=== PATIENT | male | born 1965 | race Caucasian/White ===

== ENCOUNTER 2016-05-26 22:23 | Inpatient (IN) | payer MEDICARE, MEDICAID ==
[~2016-05-26] VITALS: Ht 175.3 cm; Wt 91.8 kg
[~2016-05-26 22:23] MED LIST: CYCL10 PO; OMEP20 PO
[2016-05-26] MEDS ORDERED: ZOLPIDEM TARTRATE 10 MG TABLET PO PRN (23:45)
[2016-05-26] MEDS ORDERED: HALOPERIDOL 5 MG TABLET PO PRN (23:45)
[2016-05-27] MEDS ORDERED: PNEUMOCOCCAL VACCINE POLYVALENT 0.5 ML VIAL [PPSV23] IM ONE (00:15)
[2016-05-27] MEDS ORDERED: INFLUENZA VIRUS VACCINE QVS 2016-17 (3YR+)/PF 60 MCG/0.5 ML SYRINGE IM ONE (00:15)
[2016-05-27 01:08] VITALS: BP 115/86
[2016-05-27] MEDS: LORazepam 2 MG TABLET PO PRN ×3 (06:17→16:30)
[2016-05-27 07:49] LABS: BASOPHILS % (AUTO) 0.3 % (0.0-2.0); EOSINOPHILS % (AUTO) 0.6 % (1.0-6.0); HEMATOCRIT 49.4 % (41-53); HEMOGLOBIN 16.3 g/dL (13.5-17.5); LYMPHOCYTES % (AUTO) 9.8 % (22.0-44.0); MEAN CORPUSCULAR HGB CONC 33.1 G/dL (31.0-37.0); MEAN CORPUSCULAR VOLUME 88 fL (80-100); MONOCYTES # (AUTO) 1.4 K/uL (0.1-1.0); MONOCYTES % (AUTO) 7.1 % (2.0-9.0); NEUTROPHILS # (AUTO) 16.9 K/uL (1.8-7.7); NEUTROPHILS % (AUTO) 82.2 % (40.0-70.0); PLATELET COUNT (AUTO) 277 K/uL (150-450); RED BLOOD CELL COUNT(AUTO) 5.63 MIL/uL (4.50-5.90); RED CELL DISTRIBUTION WIDTH 13.3 % (11.5-14.5); WHITE BLOOD COUNT (AUTO) 20.5 K/uL (4.5-11.0)
[2016-05-27 08:04] VITALS: BP 123/68
[2016-05-27 08:07] LABS: HEMOGLOBIN A1C 5.3 % (4.5-6.2)
[2016-05-27 08:25] LABS: ALANINE AMINOTRANSFERASE 26 U/L (12-78); ANION GAP 12 mmol/L (8-16); ASPARTATE AMINOTRANSFERASE 13 U/L (15-37); BILIRUBIN,TOTAL 0.7 mg/dL (0.1-1.0); CALCIUM, TOTAL 9.3 mg/dL (8.8-10.5); CARBON DIOXIDE 26 mmol/L (22-29); CHLORIDE 97 mmol/L (98-107); CHOL/HDL RATIO 2.4 (4.2-7.3); CREATININE 0.88 mg/dL (0.60-1.30); GLOMERULAR FILTR. RATE CALC > 60 mL/min (>60); POTASSIUM 3.5 mmol/L (3.5-5.1); SODIUM SERUM 135 mmol/L (136-145); THYROID STIMULATING HORMONE 0.48 uIU/mL (0.36-3.74); TOTAL PROTEIN, SERUM 7.4 g/dL (6.4-8.2); UREA NITROGEN, BLOOD 13 mg/dL (7-18)
[2016-05-27] MEDS ORDERED: BENZOCAINE/MENTHOL LOZENGE MM PRN (10:45)
[2016-05-27] MEDS ORDERED: MAG HYDROX/AL HYDROX/SIMETH ES 30 ML SUSPENSION UDCUP PO PRN (10:45)
[2016-05-27] MEDS ORDERED: BACITRACIN 28.4 GM OINTMENT TP PRN (10:45)
[2016-05-27] MEDS ORDERED: ALBUTEROL SULFATE HFA 90 MCG/PUFF 8 GM INHALER IH PRN (10:45)
[2016-05-27] MEDS ORDERED: PETROLATUM,WHITE 71 GM JELLY TP PRN (10:45)
[2016-05-27] MEDS ORDERED: LOPERAMIDE HCL 2 MG CAPSULE PO PRN (10:45)
[2016-05-27] MEDS ORDERED: TraMADol HCL 50 MG TABLET PO PRN (10:45)
[2016-05-27] MEDS ORDERED: ACETAMINOPHEN 325 MG TABLET PO PRN (10:45)
[2016-05-27] MEDS ORDERED: CloNIDine HCL 0.1 MG TABLET PO PRN (10:45)
[2016-05-27] MEDS ORDERED: MAGNESIUM HYDROXIDE SUSPENSION 30 ML UDCUP PO PRN (10:45)
[2016-05-27] MEDS ORDERED: ONDANSETRON HCL 4 MG TABLET PO PRN (10:45)
[2016-05-27] MEDS ORDERED: IBUPROFEN 600 MG TABLET PO PRN (10:45)
[2016-05-27 16:06] VITALS: BP 125/67
[2016-05-27] MEDS: RisperiDONE 2 MG TABLET PO SCH (17:00)
[2016-05-27] MEDS: DIVALPROEX SODIUM 500 MG DR TABLET PO SCH (17:00)
[2016-05-27] MEDS: OMEPRAZOLE 20 MG CAPSULE PO SCH (18:30)
[2016-05-28] MEDS: LORazepam 2 MG TABLET PO PRN ×2 (01:20→08:23)
[2016-05-28 01:41] VITALS: BP 106/77
[2016-05-28 08:23] VITALS: BP 111/71
[2016-05-28] MEDS: OMEPRAZOLE 20 MG CAPSULE PO SCH (08:23)
[2016-05-28 08:28] VITALS: BP 111/71
[2016-05-28] MEDS: DIVALPROEX SODIUM 500 MG DR TABLET PO SCH (09:00)
[2016-05-28] MEDS ORDERED: CYCLOBENZAPRINE HCL 10 MG TABLET PO SCH (09:00)
[2016-05-28] MEDS: RisperiDONE 2 MG TABLET PO SCH (09:00)
[2016-05-28] MEDS ORDERED: RISP2 PO (13:29)
[2016-05-28] MEDS ORDERED: DIVA500T35 PO (13:29)
== END 2016-05-28 15:00 | disposition home or self-care (01) | DRG 885 ==
LOC: EDSTATUS 22:43 → B3A 23:48
PROVIDERS: ADMIT Psychiatry & Neurology Psychiatry; ATTEND Psychiatry & Neurology Psychiatry
DX: F25.9 Schizoaffective disorder, unspecified (principal); R45.851 Suicidal ideations; J44.9 Chronic obstructive pulmonary disease, unspecified; I10 Essential (primary) hypertension; K21.9 Gastro-esophageal reflux disease without esophagitis; K59.00 Constipation, unspecified; G47.00 Insomnia, unspecified; G89.29 Other chronic pain; M79.672 Pain in left foot; F17.200 Nicotine dependence, unspecified, uncomplicated; Z28.21 Immunization not carried out because of patient refusal; Z98.890 Other specified postprocedural states; Z88.8 Allergy status to other drugs, medicaments and biological substances; Z59.0 Homelessness; Z71.6 Tobacco abuse counseling
CPT/HCPCS: 83036; 84439; 84443

== ENCOUNTER 2019-09-18 19:13 | Inpatient (IN) | payer MEDICARE, MEDICAID ==
[~2019-09-18] VITALS: Ht 175.3 cm; Wt 93.2 kg
[~2019-09-18 19:13] MED LIST changes: +DIVA-78 PO; +RISP2TAB23 PO
[2019-09-18] MEDS ORDERED: MAGNESIUM HYDROXIDE SUSPENSION 30 ML UDCUP PO ONE (20:45)
[2019-09-18] MEDS ORDERED: SODIUM PHOS/SODIUM BIPHOS 133 ML ENEMA PR ONE (20:45)
[2019-09-18 20:56] LABS: BASOPHILS % (AUTO) 0.3 % (0.0-2.0); EOSINOPHILS % (AUTO) 0.3 % (1.0-6.0); HEMATOCRIT 46.5 % (41-53); HEMOGLOBIN 15.6 g/dL (13.5-17.5); LYMPHOCYTES # (AUTO) 2.6 K/uL (1.0-4.8); LYMPHOCYTES % (AUTO) 17.6 % (22.0-44.0); MEAN CORPUSCULAR HEMOGLOBIN 29.5 pg (26.0-34.0); MEAN CORPUSCULAR HGB CONC 33.6 G/dL (31.0-37.0); MEAN CORPUSCULAR VOLUME 88 fL (80-100); MONOCYTES # (AUTO) 1.1 K/uL (0.1-1.0); MONOCYTES % (AUTO) 7.3 % (2.0-9.0); NEUTROPHILS # (AUTO) 10.9 K/uL (1.8-7.7); NEUTROPHILS % (AUTO) 74.5 % (40.0-70.0); PLATELET COUNT (AUTO) 315 K/uL (150-450); RED BLOOD CELL COUNT(AUTO) 5.28 MIL/uL (4.50-5.90); RED CELL DISTRIBUTION WIDTH 14.8 % (11.5-14.5)
[2019-09-18 21:06] LABS: ANION GAP 6 mmol/L (8-16); CALCIUM, TOTAL 9.2 mg/dL (8.8-10.5); CARBON DIOXIDE 26 mmol/L (22-29); CHLORIDE 98 mmol/L (98-107); CREATININE 0.72 mg/dL (0.60-1.30); GLOMERULAR FILTR. RATE CALC > 60 mL/min (>60); GLUCOSE,RANDOM 105 mg/dL (70-110); POTASSIUM 3.9 mmol/L (3.5-5.1); SODIUM SERUM 130 mmol/L (136-145); UREA NITROGEN, BLOOD 13 mg/dL (7-18)
[2019-09-18 21:12] LABS: ALANINE AMINOTRANSFERASE 30 U/L (12-78); ALBUMIN 3.9 g/dL (3.4-5.0); ALKALINE PHOSPHATASE 90 U/L (46-116); ASPARTATE AMINOTRANSFERASE 13 U/L (15-37); BILIRUBIN,TOTAL 0.6 mg/dL (0.1-1.0); TOTAL PROTEIN, SERUM 7.4 g/dL (6.4-8.2)
[2019-09-18] MEDS ORDERED: SODIUM CHLORIDE 0.9% 100 ML ONE (23:37)
[2019-09-18] MEDS ORDERED: IOVERSOL 350 MG/ML 100 ML VIAL ONE (23:37)
[2019-09-19 00:25] LABS: VALPROIC ACID < 3 mcg/mL (50-100)
[2019-09-19] MEDS ORDERED: ZOLPIDEM TARTRATE 10 MG TABLET PO PRN (01:00)
[2019-09-19] MEDS ORDERED: OLANZapine 5 MG RAPDIS TABLET PO PRN (01:00)
[2019-09-19] MEDS: LORazepam 2 MG TABLET PO PRN ×4 (02:50→20:07)
[2019-09-19 03:45] VITALS: BP 123/92
[2019-09-19 03:55] VITALS: BP 123/92
[2019-09-19] MEDS ORDERED: PNEUMOCOCCAL VACCINE POLYVALENT 0.5 ML VIAL [PPSV23] IM ONE (04:15)
[2019-09-19 08:25] LABS: APPEARANCE,URINE CLEAR (CLEAR); GLUCOSE, URINE (UA) NEGATIVE (NEGATIVE); KETONES,URINE 15 mg/dL (NEGATIVE); LEUKOCYTE ESTERASE ,URINE NEGATIVE (NEGATIVE); NITRATE,URINE NEGATIVE (NEGATIVE); OCCULT BLOOD,URINE NEGATIVE (NEGATIVE); PROTEIN,URINE NEGATIVE (NEGATIVE)
[2019-09-19 08:30] LABS: AMPHET/METH SCREEN,URINE NEGATIVE (NEGATIVE); BARBITURATE SCREEN, URINE NEGATIVE (NEGATIVE); BENZODIAZEPINES SCREEN,URINE NEGATIVE (NEGATIVE); CANNABINOID SCREEN,URINE NEGATIVE (NEGATIVE); COCAINE SCREEN,URINE NEGATIVE (NEGATIVE); METHADONE SCREEN, URINE NEGATIVE (NEGATIVE); OPIATE SCREEN,URINE NEGATIVE (NEGATIVE)
[2019-09-19 08:32] LABS: PHENCYCLIDINE SCREEN,URINE NEGATIVE (NEGATIVE)
[2019-09-19 08:52] LABS: BILIRUBIN,URINE PRELIM. POSITIVE (NEGATIVE)
[2019-09-19 09:19] VITALS: BP 129/75
[2019-09-19] MEDS ORDERED: TUBERCULIN, PURIFIED PROTEIN DERIVATIVE 5 TU/0.1 ML SYRINGE ID ONE (17:30)
[2019-09-19] MEDS ORDERED: HydrOXYzine PAMOATE 50 MG CAPSULE PO PRN (17:30)
[2019-09-19] MEDS ORDERED: PROMETHAZINE HCL 25 MG TABLET PO PRN (17:30)
[2019-09-19] MEDS ORDERED: MAG HYDROX/AL HYDROX/SIMETH ES 30 ML SUSPENSION UDCUP PO PRN (17:30)
[2019-09-19] MEDS ORDERED: GuaiFENesin/D-METHORPHAN [SUGAR-FREE] 200-20MG/10 ML SYRUP UDCUP PO PRN (17:30)
[2019-09-19] MEDS ORDERED: MAGNESIUM HYDROXIDE SUSPENSION 30 ML UDCUP PO PRN (17:30)
[2019-09-19 19:28] VITALS: BP 120/75
[2019-09-20 04:22] VITALS: BP 120/88
[2019-09-20] MEDS: LORazepam 2 MG TABLET PO PRN ×4 (04:22→21:00)
[2019-09-20] MEDS: MULTIVITAMINS WITH MINERALS, THERAPEUTIC TABLET PO SCH (08:07)
[2019-09-20] MEDS: NALTREXONE HCL 50 MG TABLET PO SCH (08:07)
[2019-09-20] MEDS: FLUoxetine HCL 20 MG CAPSULE PO SCH (08:07)
[2019-09-20] MEDS: THIAMINE 100 MG TABLET PO SCH ×2 (08:07→16:53)
[2019-09-20] MEDS: FOLIC ACID 1 MG TABLET PO SCH (08:07)
[2019-09-20] MEDS ORDERED: OLANZapine 5 MG RAPDIS TABLET PO SCH (09:00)
[2019-09-20 09:04] VITALS: BP 109/84
[2019-09-20 16:06] VITALS: BP 135/76
[2019-09-20] MEDS: OMEPRAZOLE 20 MG CAPSULE PO SCH (16:52)
[2019-09-20] MEDS: PRAZOSIN HCL 1 MG CAPSULE PO SCH (20:51)
[2019-09-21 00:41] VITALS: BP 138/92
[2019-09-21] MEDS: LORazepam 2 MG TABLET PO PRN ×3 (08:12→21:13)
[2019-09-21 08:50] VITALS: BP 117/75
[2019-09-21] MEDS: NALTREXONE HCL 50 MG TABLET PO SCH (09:00)
[2019-09-21] MEDS: FOLIC ACID 1 MG TABLET PO SCH (10:39)
[2019-09-21] MEDS: THIAMINE 100 MG TABLET PO SCH ×2 (10:39→16:24)
[2019-09-21] MEDS: OMEPRAZOLE 20 MG CAPSULE PO SCH ×2 (10:40→16:25)
[2019-09-21] MEDS: FLUoxetine HCL 20 MG CAPSULE PO SCH (10:40)
[2019-09-21] MEDS: MULTIVITAMINS WITH MINERALS, THERAPEUTIC TABLET PO SCH (10:41)
[2019-09-21 16:00] VITALS: BP 141/92
[2019-09-21] MEDS: OLANZapine 10 MG RAPDIS TABLET PO SCH (20:08)
[2019-09-21] MEDS: PRAZOSIN HCL 1 MG CAPSULE PO SCH (20:08)
[2019-09-21] MEDS: IBUPROFEN 600 MG TABLET PO PRN (21:16)
[2019-09-22 04:05] VITALS: BP 139/86
[2019-09-22] MEDS: LORazepam 2 MG TABLET PO PRN ×3 (04:09→16:20)
[2019-09-22] MEDS: IBUPROFEN 600 MG TABLET PO PRN ×2 (04:09→16:39)
[2019-09-22] MEDS: OMEPRAZOLE 20 MG CAPSULE PO SCH ×2 (08:12→16:19)
[2019-09-22] MEDS: MULTIVITAMINS WITH MINERALS, THERAPEUTIC TABLET PO SCH (08:12)
[2019-09-22] MEDS: FOLIC ACID 1 MG TABLET PO SCH (08:12)
[2019-09-22] MEDS: THIAMINE 100 MG TABLET PO SCH ×2 (08:12→16:19)
[2019-09-22] MEDS: NALTREXONE HCL 50 MG TABLET PO SCH (08:19)
[2019-09-22] MEDS: FLUoxetine HCL 20 MG CAPSULE PO SCH (08:19)
[2019-09-22 08:22] LABS: ANION GAP 7 mmol/L (8-16); CALCIUM, TOTAL 8.8 mg/dL (8.8-10.5); CARBON DIOXIDE 28 mmol/L (22-29); CHLORIDE 106 mmol/L (98-107); CREATININE 0.72 mg/dL (0.60-1.30); GLOMERULAR FILTR. RATE CALC > 60 mL/min (>60); GLUCOSE,RANDOM 108 mg/dL (70-110); POTASSIUM 3.8 mmol/L (3.5-5.1); SODIUM SERUM 141 mmol/L (136-145); UREA NITROGEN, BLOOD 11 mg/dL (7-18)
[2019-09-22 08:30] VITALS: BP 123/88
[2019-09-22 16:42] VITALS: BP 117/71
[2019-09-22] MEDS: OLANZapine 10 MG RAPDIS TABLET PO SCH (20:08)
[2019-09-22] MEDS: PRAZOSIN HCL 1 MG CAPSULE PO SCH (20:08)
[2019-09-22 23:55] VITALS: BP 134/90
[2019-09-23] MEDS: LORazepam 1 MG TABLET PO PRN ×4 (00:02→17:54)
[2019-09-23 00:43] VITALS: BP 139/99
[2019-09-23 06:25] VITALS: BP 142/88
[2019-09-23 07:39] LABS: BASOPHILS % (AUTO) 0.3 % (0.0-2.0); HEMOGLOBIN 13.8 g/dL (13.5-17.5); LYMPHOCYTES # (AUTO) 1.6 K/uL (1.0-4.8); MEAN CORPUSCULAR HEMOGLOBIN 29.6 pg (26.0-34.0); MEAN CORPUSCULAR HGB CONC 32.1 G/dL (31.0-37.0); MEAN CORPUSCULAR VOLUME 92 fL (80-100); MONOCYTES # (AUTO) 0.4 K/uL (0.1-1.0); MONOCYTES % (AUTO) 3.9 % (2.0-9.0); NEUTROPHILS # (AUTO) 7.4 K/uL (1.8-7.7); NEUTROPHILS % (AUTO) 77.8 % (40.0-70.0); PLATELET COUNT (AUTO) 274 K/uL (150-450); RED BLOOD CELL COUNT(AUTO) 4.65 MIL/uL (4.50-5.90); RED CELL DISTRIBUTION WIDTH 16.4 % (11.5-14.5)
[2019-09-23 07:44] LABS: CREATINE KINASE, TOTAL ONLY 75 U/L (39-308)
[2019-09-23] MEDS: MULTIVITAMINS WITH MINERALS, THERAPEUTIC TABLET PO SCH (08:36)
[2019-09-23] MEDS: FOLIC ACID 1 MG TABLET PO SCH (08:36)
[2019-09-23] MEDS: THIAMINE 100 MG TABLET PO SCH ×2 (08:36→16:20)
[2019-09-23] MEDS: OMEPRAZOLE 20 MG CAPSULE PO SCH ×2 (08:36→16:20)
[2019-09-23] MEDS: ARIPiprazole 5 MG TABLET PO SCH (08:36)
[2019-09-23 15:00] VITALS: BP 134/95
[2019-09-23] MEDS: IBUPROFEN 600 MG TABLET PO PRN (15:48)
[2019-09-23 17:00] VITALS: BP 134/95
[2019-09-23] MEDS: DIVALPROEX SODIUM 500 MG ER TABLET PO SCH (20:14)
[2019-09-23] MEDS: ACETAMINOPHEN 325 MG TABLET PO PRN (20:39)
[2019-09-24] MEDS: LORazepam 1 MG TABLET PO PRN ×4 (00:45→18:55)
[2019-09-24 00:55] VITALS: BP 111/79
[2019-09-24] MEDS: LOPERAMIDE HCL 2 MG CAPSULE PO PRN ×2 (01:03→21:58)
[2019-09-24] MEDS: ARIPiprazole 5 MG TABLET PO SCH (09:00)
[2019-09-24] MEDS: MULTIVITAMINS WITH MINERALS, THERAPEUTIC TABLET PO SCH (10:34)
[2019-09-24] MEDS: THIAMINE 100 MG TABLET PO SCH ×2 (10:34→16:50)
[2019-09-24] MEDS: FOLIC ACID 1 MG TABLET PO SCH (10:35)
[2019-09-24] MEDS: OMEPRAZOLE 20 MG CAPSULE PO SCH ×2 (10:35→16:50)
[2019-09-24] MEDS: ACETAMINOPHEN 325 MG TABLET PO PRN (12:29)
[2019-09-24 12:31] VITALS: BP 124/78
[2019-09-24 13:30] VITALS: BP 132/79
[2019-09-24 17:00] VITALS: BP 111/86
[2019-09-24] MEDS ORDERED: DIVA500T52 PO (19:15)
[2019-09-24] MEDS ORDERED: ARIP5TAB8 PO (19:15)
[2019-09-24] MEDS: DIVALPROEX SODIUM 500 MG ER TABLET PO SCH (20:12)
[2019-09-24 20:49] VITALS: BP 111/86
[2019-09-25] VITALS: BP 120/90
[2019-09-25 05:28] VITALS: BP 122/80
[2019-09-25] MEDS: LORazepam 1 MG TABLET PO PRN ×3 (05:28→09:47)
[2019-09-25] MEDS: MULTIVITAMINS WITH MINERALS, THERAPEUTIC TABLET PO SCH (08:16)
[2019-09-25] MEDS: OMEPRAZOLE 20 MG CAPSULE PO SCH (08:16)
[2019-09-25] MEDS: FOLIC ACID 1 MG TABLET PO SCH (08:18)
[2019-09-25] MEDS: THIAMINE 100 MG TABLET PO SCH (08:18)
[2019-09-25] MEDS: ARIPiprazole 5 MG TABLET PO SCH (08:28)
[2019-09-25 08:59] VITALS: BP 119/88
[2019-09-25 09:46] VITALS: BP 119/88
[2019-09-25] MEDS: ACETAMINOPHEN 325 MG TABLET PO PRN (09:46)
== END 2019-09-25 14:30 | disposition home or self-care (01) | DRG 885 ==
LOC: EMS 19:14 → 3EX 09-19 00:46 → UNDOADMIN 09-19 01:30 → 3EX 09-19 01:30 → UNDODISIN 09-25 14:30
PROVIDERS: ADMIT Psychiatry & Neurology Psychiatry; ATTEND Psychiatry & Neurology Psychiatry
DX: F25.0 Schizoaffective disorder, bipolar type (principal); E87.1 Hypo-osmolality and hyponatremia; R45.851 Suicidal ideations; K21.9 Gastro-esophageal reflux disease without esophagitis; D72.829 Elevated white blood cell count, unspecified; M19.90 Unspecified osteoarthritis, unspecified site; I10 Essential (primary) hypertension; F41.9 Anxiety disorder, unspecified; J44.9 Chronic obstructive pulmonary disease, unspecified; K59.00 Constipation, unspecified; G89.29 Other chronic pain; Z59.0 Homelessness; Z87.891 Personal history of nicotine dependence; Z20.828 Contact with and (suspected) exposure to other viral communicable diseases; Z91.14 Patient's other noncompliance with medication regimen
CPT/HCPCS: 74177; 83735; G0378; G0480; J7050

== ENCOUNTER 2019-11-05 18:29 | Emergency (ER) | payer MEDICARE, OTHER ==
[~2019-11-05] VITALS: Ht 180.3 cm; Wt 97.7 kg
[~2019-11-05 18:29] MED LIST changes: +ARIP5TAB8 PO; -CYCL10 PO; -DIVA-78 PO; +DIVA-80 PO; -RISP2TAB23 PO
[2019-11-05] MEDS ORDERED: IPRAHFA IH (18:36)
[2019-11-05] MEDS ORDERED: ALBU8.5H8 IH (18:36)
[2019-11-05 21:45] VITALS: BP 130/79
[2019-11-05] MEDS ORDERED: HYDROCODONE/ACETAMINOPHEN 10-325 MG TABLET PO ONE (22:15)
[2019-11-05 22:30] LABS: BASOPHILS % (AUTO) 0.6 % (0.0-2.0); EOSINOPHILS % (AUTO) 0.9 % (1.0-6.0); HEMATOCRIT 43.4 % (41-53); HEMOGLOBIN 14.2 g/dL (13.5-17.5); LYMPHOCYTES # (AUTO) 2.2 K/uL (1.0-4.8); LYMPHOCYTES % (AUTO) 17.9 % (22.0-44.0); MEAN CORPUSCULAR HEMOGLOBIN 29.8 pg (26.0-34.0); MEAN CORPUSCULAR HGB CONC 32.8 G/dL (31.0-37.0); MEAN CORPUSCULAR VOLUME 91 fL (80-100); MONOCYTES % (AUTO) 8.6 % (2.0-9.0); NEUTROPHILS # (AUTO) 8.7 K/uL (1.8-7.7); PLATELET COUNT (AUTO) 281 K/uL (150-450); RED BLOOD CELL COUNT(AUTO) 4.78 MIL/uL (4.50-5.90); RED CELL DISTRIBUTION WIDTH 13.7 % (11.5-14.5)
[2019-11-05 23:10] LABS: ANION GAP 10 mmol/L (8-16); CALCIUM, TOTAL 9.3 mg/dL (8.8-10.5); CARBON DIOXIDE 27 mmol/L (22-29); CHLORIDE 107 mmol/L (98-107); CREATININE 1.03 mg/dL (0.60-1.30); GLOMERULAR FILTR. RATE CALC > 60 mL/min (>60); GLUCOSE,RANDOM 97 mg/dL (70-110); POTASSIUM 3.7 mmol/L (3.5-5.1); SODIUM SERUM 144 mmol/L (136-145); UREA NITROGEN, BLOOD 17 mg/dL (7-18)
[2019-11-05 23:16] LABS: ALANINE AMINOTRANSFERASE 21 U/L (12-78); ALBUMIN 3.6 g/dL (3.4-5.0); ALKALINE PHOSPHATASE 82 U/L (46-116); ASPARTATE AMINOTRANSFERASE 15 U/L (15-37); BILIRUBIN,TOTAL 0.4 mg/dL (0.1-1.0); CREATINE KINASE, TOTAL ONLY 70 U/L (39-308); TOTAL PROTEIN, SERUM 7.4 g/dL (6.4-8.2)
== END 2019-11-05 23:23 | disposition left against medical advice (07) ==
LOC: EMS 18:38
DX: G89.29 Other chronic pain (principal); M54.5 Low back pain; F17.210 Nicotine dependence, cigarettes, uncomplicated; J44.9 Chronic obstructive pulmonary disease, unspecified; Z79.899 Other long term (current) drug therapy
CPT/HCPCS: 93005; 36415-L1; 36415-TC; 71045-TC

== ENCOUNTER 2020-01-10 16:53 | Inpatient (IN) | payer MEDICARE, MEDICAID ==
[~2020-01-10] VITALS: Ht 175.3 cm; Wt 100.0 kg
[~2020-01-10 16:53] MED LIST changes: +ALBU8.5H8 IH; +IPRAHFA IH
[2020-01-10 17:50] LABS: BASOPHILS % (AUTO) 0.4 % (0.0-2.0); HEMATOCRIT 40.2 % (41-53); HEMOGLOBIN 13.4 g/dL (13.5-17.5); LYMPHOCYTES # (AUTO) 1.9 K/uL (1.0-4.8); LYMPHOCYTES % (AUTO) 16.4 % (22.0-44.0); MEAN CORPUSCULAR HEMOGLOBIN 29.1 pg (26.0-34.0); MEAN CORPUSCULAR HGB CONC 33.2 G/dL (31.0-37.0); MEAN CORPUSCULAR VOLUME 88 fL (80-100); MONOCYTES # (AUTO) 0.9 K/uL (0.1-1.0); MONOCYTES % (AUTO) 8.2 % (2.0-9.0); NEUTROPHILS # (AUTO) 8.5 K/uL (1.8-7.7); PLATELET COUNT (AUTO) 258 K/uL (150-450); RED BLOOD CELL COUNT(AUTO) 4.59 MIL/uL (4.50-5.90); RED CELL DISTRIBUTION WIDTH 13.2 % (11.5-14.5)
[2020-01-10 18:12] LABS: ANION GAP 9 mmol/L (8-16); CALCIUM, TOTAL 9.1 mg/dL (8.8-10.5); CARBON DIOXIDE 29 mmol/L (22-29); CHLORIDE 104 mmol/L (98-107); CREATININE 0.82 mg/dL (0.60-1.30); GLOMERULAR FILTR. RATE CALC > 60 mL/min (>60); GLUCOSE,RANDOM 101 mg/dL (70-110); POTASSIUM 3.7 mmol/L (3.5-5.1); SODIUM SERUM 142 mmol/L (136-145); UREA NITROGEN, BLOOD 13 mg/dL (7-18)
[2020-01-10 18:16] LABS: ALANINE AMINOTRANSFERASE 22 U/L (12-78); ALBUMIN 3.7 g/dL (3.4-5.0); ALKALINE PHOSPHATASE 81 U/L (46-116); ASPARTATE AMINOTRANSFERASE 21 U/L (15-37); BILIRUBIN,TOTAL 0.2 mg/dL (0.1-1.0); TOTAL PROTEIN, SERUM 6.5 g/dL (6.4-8.2)
[2020-01-10 18:34] LABS: COVID AG,FIA SOURCE NASOPHARYNGEAL
[2020-01-10] MEDS ORDERED: ZOLPIDEM TARTRATE 10 MG TABLET PO PRN (19:45)
[2020-01-10] MEDS ORDERED: ChlorproMAZINE HCL 100 MG TABLET PO PRN (19:45)
[2020-01-10] MEDS: DIVALPROEX SODIUM 500 MG ER TABLET PO SCH ×2 (21:00→21:18)
[2020-01-10] MEDS: OLANZapine 10 MG RAPDIS TABLET PO SCH ×2 (21:00→21:18)
[2020-01-10 22:21] LABS: AMPHET/METH SCREEN,URINE NEGATIVE (NEGATIVE); BARBITURATE SCREEN, URINE NEGATIVE (NEGATIVE); BENZODIAZEPINES SCREEN,URINE NEGATIVE (NEGATIVE); CANNABINOID SCREEN,URINE NEGATIVE (NEGATIVE); COCAINE SCREEN,URINE NEGATIVE (NEGATIVE); METHADONE SCREEN, URINE NEGATIVE (NEGATIVE); OPIATE SCREEN,URINE POSITIVE (NEGATIVE)
[2020-01-10 22:24] LABS: PHENCYCLIDINE SCREEN,URINE NEGATIVE (NEGATIVE)
[2020-01-11 02:03] VITALS: BP 114/70
[2020-01-11] MEDS ORDERED: PNEUMOCOCCAL VACCINE POLYVALENT 0.5 ML VIAL [PPSV23] IM ONE (03:45)
[2020-01-11 09:02] VITALS: BP 128/89
[2020-01-11] MEDS ORDERED: ALBUTEROL SULFATE HFA 90 MCG/PUFF 8 GM INHALER IH PRN (14:15)
[2020-01-11] MEDS: IPRATROPIUM BROMIDE HFA 17 MCG/PUFF 12.9 GM INHALER IH SCH (17:03)
[2020-01-11] MEDS: OLANZapine 10 MG RAPDIS TABLET PO SCH (20:46)
[2020-01-11] MEDS: DIVALPROEX SODIUM 500 MG ER TABLET PO SCH (20:46)
[2020-01-11] MEDS: ACETAMINOPHEN 325 MG TABLET PO PRN (20:48)
[2020-01-11] MEDS: LORazepam 2 MG TABLET PO PRN (21:11)
[2020-01-12 00:37] VITALS: BP 125/78
[2020-01-12] MEDS: LORazepam 2 MG TABLET PO PRN ×4 (03:40→19:36)
[2020-01-12] MEDS: ACETAMINOPHEN 325 MG TABLET PO PRN ×2 (04:29→13:22)
[2020-01-12 04:30] VITALS: BP 146/94
[2020-01-12 08:23] VITALS: BP 136/86
[2020-01-12] MEDS: IPRATROPIUM BROMIDE HFA 17 MCG/PUFF 12.9 GM INHALER IH SCH ×2 (08:57→16:36)
[2020-01-12] MEDS: IBUPROFEN 600 MG TABLET PO PRN (09:39)
[2020-01-12 16:15] VITALS: BP 125/86
[2020-01-12] MEDS: OMEPRAZOLE 20 MG CAPSULE PO SCH (16:35)
[2020-01-12] MEDS: LOPERAMIDE HCL 2 MG CAPSULE PO PRN (19:17)
[2020-01-12] MEDS ORDERED: ZOLPIDEM TARTRATE 5 MG TABLET PO PRN (20:15)
[2020-01-12] MEDS: HydrOXYzine PAMOATE 50 MG CAPSULE PO SCH (21:00)
[2020-01-12] MEDS: OLANZapine 10 MG RAPDIS TABLET PO SCH (21:00)
[2020-01-12] MEDS ORDERED: HydrOXYzine PAMOATE 25 MG CAPSULE PO SCH (21:00)
[2020-01-12] MEDS: DIVALPROEX SODIUM 500 MG ER TABLET PO SCH (21:00)
[2020-01-12] MEDS ORDERED: MELATONIN 5 MG TABLET PO PRN (21:15)
[2020-01-13 02:25] VITALS: BP 139/95
[2020-01-13] MEDS: IBUPROFEN 600 MG TABLET PO PRN ×2 (02:31→08:43)
[2020-01-13] MEDS: LORazepam 1 MG TABLET PO PRN ×3 (04:10→15:40)
[2020-01-13] MEDS ORDERED: ONDANSETRON HCL 4 MG TABLET PO PRN (07:00)
[2020-01-13 08:18] VITALS: BP 109/64
[2020-01-13] MEDS: OMEPRAZOLE 20 MG CAPSULE PO SCH ×2 (08:33→16:35)
[2020-01-13] MEDS: IPRATROPIUM BROMIDE HFA 17 MCG/PUFF 12.9 GM INHALER IH SCH ×2 (08:34→16:35)
[2020-01-13] MEDS: HydrOXYzine PAMOATE 50 MG CAPSULE PO SCH ×4 (08:44→21:00)
[2020-01-13] MEDS: LOPERAMIDE HCL 2 MG CAPSULE PO PRN (13:11)
[2020-01-13 14:33] VITALS: BP 131/87
[2020-01-13] MEDS: HYDROCODONE/ACETAMINOPHEN 10-325 MG TABLET PO PRN ×2 (14:37→22:47)
[2020-01-13 16:37] VITALS: BP 111/85
[2020-01-13] MEDS: DIVALPROEX SODIUM 500 MG ER TABLET PO SCH (21:00)
[2020-01-13] MEDS: OLANZapine 10 MG RAPDIS TABLET PO SCH (21:00)
[2020-01-13 22:45] VITALS: BP 121/86
[2020-01-13] MEDS: MELATONIN 5 MG TABLET PO PRN (23:37)
[2020-01-14 01:09] VITALS: BP 138/100
[2020-01-14] MEDS: LORazepam 1 MG TABLET PO PRN ×3 (04:15→14:32)
[2020-01-14 06:45] VITALS: BP 142/93
[2020-01-14] MEDS: HYDROCODONE/ACETAMINOPHEN 10-325 MG TABLET PO PRN ×2 (06:49→16:27)
[2020-01-14 08:33] VITALS: BP 109/70
[2020-01-14] MEDS: HydrOXYzine PAMOATE 50 MG CAPSULE PO SCH ×4 (09:00→21:00)
[2020-01-14] MEDS: IPRATROPIUM BROMIDE HFA 17 MCG/PUFF 12.9 GM INHALER IH SCH ×2 (09:23→16:24)
[2020-01-14] MEDS: OMEPRAZOLE 20 MG CAPSULE PO SCH ×2 (09:23→16:22)
[2020-01-14] MEDS ORDERED: OLANZapine 5 MG RAPDIS TABLET PO PRN (10:30)
[2020-01-14] MEDS ORDERED: DIAZEPAM 10 MG TABLET PO PRN (15:45)
[2020-01-14] MEDS ORDERED: CloNIDine HCL 0.1 MG TABLET PO PRN (15:45)
[2020-01-14] MEDS ORDERED: MAG HYDROX/AL HYDROX/SIMETH ES 30 ML SUSPENSION UDCUP PO PRN (15:45)
[2020-01-14] MEDS ORDERED: IBUPROFEN 600 MG TABLET PO PRN (15:45)
[2020-01-14] MEDS ORDERED: HydrOXYzine PAMOATE 50 MG CAPSULE PO PRN (15:45)
[2020-01-14 16:10] VITALS: BP 109/73
[2020-01-14 16:18] VITALS: BP 109/73
[2020-01-14] MEDS: CloNIDine HCL 0.1 MG TABLET PO SCH ×2 (17:00→21:13)
[2020-01-14] MEDS: PREGABALIN 50 MG CAPSULE PO SCH (17:00)
[2020-01-14] MEDS: AMITRIPTYLINE HCL 10 MG TABLET PO SCH (21:00)
[2020-01-14] MEDS: MELATONIN 5 MG TABLET PO PRN (22:18)
[2020-01-15 00:21] VITALS: BP 127/88
[2020-01-15] MEDS: HYDROCODONE/ACETAMINOPHEN 10-325 MG TABLET PO PRN ×3 (01:32→17:33)
[2020-01-15] MEDS: CloNIDine HCL 0.1 MG TABLET PO SCH ×4 (06:00→21:02)
[2020-01-15] MEDS: LURASIDONE HCL 20 MG TABLET PO SCH (06:39)
[2020-01-15] MEDS ORDERED: DIAZEPAM 10 MG TABLET PO PRN (07:00)
[2020-01-15 08:24] VITALS: BP 107/68
[2020-01-15] MEDS: VENLAFAXINE HCL 37.5 MG ER CAPSULE PO SCH (09:00)
[2020-01-15] MEDS: OMEGA-3/DHA/EPA/FISH OIL 1,000 MG CAPSULE PO SCH (09:00)
[2020-01-15] MEDS: PREGABALIN 50 MG CAPSULE PO SCH ×3 (09:00→17:00)
[2020-01-15] MEDS: NALTREXONE HCL 50 MG TABLET PO SCH (09:00)
[2020-01-15] MEDS: IPRATROPIUM BROMIDE HFA 17 MCG/PUFF 12.9 GM INHALER IH SCH ×2 (09:00→17:00)
[2020-01-15] MEDS: OMEPRAZOLE 20 MG CAPSULE PO SCH ×2 (09:00→17:02)
[2020-01-15] MEDS: HydrOXYzine PAMOATE 50 MG CAPSULE PO SCH ×4 (09:00→21:00)
[2020-01-15] MEDS: DIAZEPAM 10 MG TABLET PO SCH ×4 (09:00→21:00)
[2020-01-15 17:28] VITALS: BP 123/90
[2020-01-15 17:30] VITALS: BP 123/90
[2020-01-15] MEDS: AMITRIPTYLINE HCL 10 MG TABLET PO SCH (21:00)
[2020-01-15] MEDS: MELATONIN 5 MG TABLET PO PRN (22:14)
[2020-01-16 01:18] VITALS: BP 129/89
[2020-01-16] MEDS: HYDROCODONE/ACETAMINOPHEN 10-325 MG TABLET PO PRN ×3 (01:24→17:39)
[2020-01-16] MEDS: CloNIDine HCL 0.1 MG TABLET PO SCH ×5 (06:00→20:58)
[2020-01-16] MEDS: LURASIDONE HCL 20 MG TABLET PO SCH (06:29)
[2020-01-16 08:37] VITALS: BP 128/68
[2020-01-16] MEDS: VENLAFAXINE HCL 37.5 MG ER CAPSULE PO SCH (08:40)
[2020-01-16] MEDS: IPRATROPIUM BROMIDE HFA 17 MCG/PUFF 12.9 GM INHALER IH SCH ×2 (08:40→16:53)
[2020-01-16] MEDS: OMEGA-3/DHA/EPA/FISH OIL 1,000 MG CAPSULE PO SCH (08:41)
[2020-01-16] MEDS: PREGABALIN 50 MG CAPSULE PO SCH ×4 (08:41→17:00)
[2020-01-16] MEDS: OMEPRAZOLE 20 MG CAPSULE PO SCH ×2 (08:41→16:45)
[2020-01-16] MEDS: NALTREXONE HCL 50 MG TABLET PO SCH (08:41)
[2020-01-16] MEDS: HydrOXYzine PAMOATE 50 MG CAPSULE PO SCH ×5 (08:42→20:57)
[2020-01-16] MEDS: DIAZEPAM 10 MG TABLET PO SCH ×5 (08:42→20:57)
[2020-01-16 15:50] VITALS: BP 128/72
[2020-01-16 16:10] VITALS: BP 134/86
[2020-01-16] MEDS: AMITRIPTYLINE HCL 10 MG TABLET PO SCH (20:57)
[2020-01-16] MEDS: MELATONIN 5 MG TABLET PO PRN (22:31)
[2020-01-17 01:27] VITALS: BP 114/70
[2020-01-17] MEDS: HYDROCODONE/ACETAMINOPHEN 10-325 MG TABLET PO PRN ×3 (01:55→19:04)
[2020-01-17] MEDS: CloNIDine HCL 0.1 MG TABLET PO SCH ×4 (06:00→21:23)
[2020-01-17] MEDS: LURASIDONE HCL 20 MG TABLET PO SCH (06:29)
[2020-01-17] MEDS ORDERED: DIAZEPAM 5 MG TABLET PO PRN (07:00)
[2020-01-17 08:21] VITALS: BP 135/96
[2020-01-17] MEDS: NALTREXONE HCL 50 MG TABLET PO SCH (09:00)
[2020-01-17] MEDS: PREGABALIN 50 MG CAPSULE PO SCH ×3 (09:00→17:00)
[2020-01-17] MEDS: IPRATROPIUM BROMIDE HFA 17 MCG/PUFF 12.9 GM INHALER IH SCH ×2 (09:00→16:28)
[2020-01-17] MEDS: OMEPRAZOLE 20 MG CAPSULE PO SCH ×2 (09:00→16:28)
[2020-01-17] MEDS: DIAZEPAM 5 MG TABLET PO SCH ×4 (09:00→20:35)
[2020-01-17] MEDS: HydrOXYzine PAMOATE 50 MG CAPSULE PO SCH ×4 (09:00→20:35)
[2020-01-17] MEDS: OMEGA-3/DHA/EPA/FISH OIL 1,000 MG CAPSULE PO SCH (09:00)
[2020-01-17] MEDS: VENLAFAXINE HCL 37.5 MG ER CAPSULE PO SCH (09:00)
[2020-01-17 16:32] VITALS: BP 120/77
[2020-01-17 16:34] VITALS: BP 120/77
[2020-01-17 19:00] VITALS: BP 116/90
[2020-01-17] MEDS: AMITRIPTYLINE HCL 10 MG TABLET PO SCH (20:34)
[2020-01-17] MEDS: MELATONIN 5 MG TABLET PO PRN (23:11)
[2020-01-18 03:01] VITALS: BP 120/81
[2020-01-18] MEDS: HYDROCODONE/ACETAMINOPHEN 10-325 MG TABLET PO PRN ×3 (03:02→19:39)
[2020-01-18] MEDS: CloNIDine HCL 0.1 MG TABLET PO SCH ×4 (06:00→22:00)
[2020-01-18] MEDS: LURASIDONE HCL 20 MG TABLET PO SCH (06:52)
[2020-01-18] MEDS ORDERED: DIAZEPAM 5 MG TABLET PO PRN (07:00)
[2020-01-18] MEDS: OMEPRAZOLE 20 MG CAPSULE PO SCH ×2 (09:00→16:34)
[2020-01-18] MEDS: PREGABALIN 50 MG CAPSULE PO SCH ×3 (09:00→16:41)
[2020-01-18] MEDS: HydrOXYzine PAMOATE 50 MG CAPSULE PO SCH ×4 (09:00→20:40)
[2020-01-18] MEDS: IPRATROPIUM BROMIDE HFA 17 MCG/PUFF 12.9 GM INHALER IH SCH ×2 (09:00→16:34)
[2020-01-18] MEDS: NALTREXONE HCL 50 MG TABLET PO SCH (09:00)
[2020-01-18] MEDS: VENLAFAXINE HCL 37.5 MG ER CAPSULE PO SCH (09:00)
[2020-01-18] MEDS: OMEGA-3/DHA/EPA/FISH OIL 1,000 MG CAPSULE PO SCH (09:00)
[2020-01-18 10:58] VITALS: BP 148/76
[2020-01-18 17:04] VITALS: BP 142/70
[2020-01-18 17:07] VITALS: BP 142/70
[2020-01-18 19:39] VITALS: BP 126/69
[2020-01-18] MEDS: AMITRIPTYLINE HCL 10 MG TABLET PO SCH (20:40)
[2020-01-18] MEDS: MELATONIN 5 MG TABLET PO PRN (22:07)
[2020-01-19] MEDS: HYDROCODONE/ACETAMINOPHEN 10-325 MG TABLET PO PRN ×3 (03:49→20:39)
[2020-01-19] MEDS: CloNIDine HCL 0.1 MG TABLET PO SCH ×4 (06:00→20:44)
[2020-01-19] MEDS: LURASIDONE HCL 20 MG TABLET PO SCH (06:43)
[2020-01-19 06:49] VITALS: BP 114/88
[2020-01-19 08:04] LABS: COVID AG,FIA SOURCE NASOPHARYNGEAL
[2020-01-19] MEDS: PREGABALIN 50 MG CAPSULE PO SCH ×3 (09:00→17:00)
[2020-01-19] MEDS: NALTREXONE HCL 50 MG TABLET PO SCH (09:00)
[2020-01-19] MEDS: VENLAFAXINE HCL 37.5 MG ER CAPSULE PO SCH (09:00)
[2020-01-19] MEDS: OMEGA-3/DHA/EPA/FISH OIL 1,000 MG CAPSULE PO SCH (09:00)
[2020-01-19] MEDS: IPRATROPIUM BROMIDE HFA 17 MCG/PUFF 12.9 GM INHALER IH SCH ×2 (09:00→17:00)
[2020-01-19] MEDS: OMEPRAZOLE 20 MG CAPSULE PO SCH ×2 (09:00→12:33)
[2020-01-19] MEDS: HydrOXYzine PAMOATE 50 MG CAPSULE PO SCH ×4 (09:00→20:44)
[2020-01-19 12:33] VITALS: BP 116/82
[2020-01-19 16:10] VITALS: BP 127/83
[2020-01-19 16:41] VITALS: BP 127/83
[2020-01-19] MEDS: AMITRIPTYLINE HCL 10 MG TABLET PO SCH (20:43)
[2020-01-20] MEDS: HYDROCODONE/ACETAMINOPHEN 10-325 MG TABLET PO PRN ×3 (04:39→20:56)
[2020-01-20 05:56] VITALS: BP 122/86
[2020-01-20] MEDS: CloNIDine HCL 0.1 MG TABLET PO SCH ×4 (06:00→22:00)
[2020-01-20] MEDS: LURASIDONE HCL 20 MG TABLET PO SCH (06:17)
[2020-01-20] MEDS: OMEPRAZOLE 20 MG CAPSULE PO SCH ×2 (08:09→16:21)
[2020-01-20] MEDS: IPRATROPIUM BROMIDE HFA 17 MCG/PUFF 12.9 GM INHALER IH SCH ×2 (08:11→16:20)
[2020-01-20] MEDS: OMEGA-3/DHA/EPA/FISH OIL 1,000 MG CAPSULE PO SCH (08:11)
[2020-01-20] MEDS: VENLAFAXINE HCL 37.5 MG ER CAPSULE PO SCH (08:11)
[2020-01-20] MEDS: PREGABALIN 50 MG CAPSULE PO SCH ×3 (08:11→17:00)
[2020-01-20] MEDS: NALTREXONE HCL 50 MG TABLET PO SCH (08:12)
[2020-01-20] MEDS: HydrOXYzine PAMOATE 50 MG CAPSULE PO SCH ×4 (08:12→21:00)
[2020-01-20 10:01] VITALS: BP 133/77
[2020-01-20 12:54] VITALS: BP 128/76
[2020-01-20 17:45] VITALS: BP 107/70
[2020-01-20 20:56] VITALS: BP 138/82
[2020-01-20] MEDS: AMITRIPTYLINE HCL 10 MG TABLET PO SCH (21:00)
[2020-01-20] MEDS: MELATONIN 5 MG TABLET PO PRN (22:27)
[2020-01-21 02:30] VITALS: BP 127/89
[2020-01-21 04:50] VITALS: BP 126/86
[2020-01-21] MEDS: HYDROCODONE/ACETAMINOPHEN 10-325 MG TABLET PO PRN (04:58)
[2020-01-21] MEDS: CloNIDine HCL 0.1 MG TABLET PO SCH ×2 (06:00→12:00)
[2020-01-21] MEDS: LURASIDONE HCL 20 MG TABLET PO SCH (06:37)
[2020-01-21 08:35] VITALS: BP 115/87
[2020-01-21] MEDS: OMEGA-3/DHA/EPA/FISH OIL 1,000 MG CAPSULE PO SCH (08:55)
[2020-01-21] MEDS: NALTREXONE HCL 50 MG TABLET PO SCH (08:55)
[2020-01-21] MEDS: OMEPRAZOLE 20 MG CAPSULE PO SCH (08:55)
[2020-01-21] MEDS: HydrOXYzine PAMOATE 50 MG CAPSULE PO SCH ×2 (08:55→13:00)
[2020-01-21] MEDS: IPRATROPIUM BROMIDE HFA 17 MCG/PUFF 12.9 GM INHALER IH SCH (08:55)
[2020-01-21] MEDS: VENLAFAXINE HCL 37.5 MG ER CAPSULE PO SCH (08:55)
[2020-01-21] MEDS: PREGABALIN 50 MG CAPSULE PO SCH ×2 (08:55→13:00)
[2020-01-21] MEDS ORDERED: NALT50TA PO (09:28)
[2020-01-21] MEDS ORDERED: HYD50 PO (09:28)
[2020-01-21] MEDS ORDERED: OMEG-135 PO (09:28)
[2020-01-21] MEDS ORDERED: MELA5TAB3 PO (09:28)
[2020-01-21] MEDS ORDERED: LURA20TA PO (09:28)
[2020-01-21] MEDS ORDERED: AMIT10TA6 PO (09:28)
[2020-01-21] MEDS ORDERED: VENL37.570 PO (09:28)
[2020-01-21] MEDS ORDERED: PREG50 PO (09:28)
== END 2020-01-21 13:09 | DRG 885 ==
LOC: EMS 16:53 → B2X 19:41
PROVIDERS: ADMIT Psychiatry & Neurology Psychiatry; ATTEND Psychiatry & Neurology Psychiatry
DX: F20.0 Paranoid schizophrenia (principal); R45.851 Suicidal ideations; J44.9 Chronic obstructive pulmonary disease, unspecified; G89.29 Other chronic pain; D72.829 Elevated white blood cell count, unspecified; F17.210 Nicotine dependence, cigarettes, uncomplicated; I10 Essential (primary) hypertension; F41.9 Anxiety disorder, unspecified; K21.9 Gastro-esophageal reflux disease without esophagitis; Z20.828 Contact with and (suspected) exposure to other viral communicable diseases; M54.9 Dorsalgia, unspecified; Z79.899 Other long term (current) drug therapy; Z88.8 Allergy status to other drugs, medicaments and biological substances; Z91.5 Personal history of self-harm; Z91.14 Patient's other noncompliance with medication regimen; Z79.51 Long term (current) use of inhaled steroids
CPT/HCPCS: 87426; G0480; J3535; Q0162; 36415-L1; 36415-TC; 71045-TC

== ENCOUNTER 2020-02-05 02:36 | Emergency (ER) | payer MEDICARE, OTHER ==
[~2020-02-05] VITALS: Ht 175.3 cm; Wt 95.5 kg
[~2020-02-05 02:36] MED LIST changes: -ALBU8.5H8 IH; +AMIT10TA6 PO; -ARIP5TAB8 PO; -DIVA-80 PO; +HYD50 PO; -IPRAHFA IH; +LURA20TA PO; +MELA5TAB3 PO; +NALT50TA PO; +OMEG-135 PO; -OMEP20 PO; +PREG50 PO; +VENL37.570 PO
[2020-02-05] MEDS ORDERED: METHOCARBAMOL 100 MG/ML 10 ML VIAL IVP ONE (03:30)
[2020-02-05] MEDS ORDERED: KETOROLAC TROMETHAMINE 30 MG/ML VIAL IVP ONE (03:30)
[2020-02-05 04:18] LABS: BASOPHILS % (AUTO) 0.5 % (0.0-2.0); EOSINOPHILS % (AUTO) 0.7 % (1.0-6.0); HEMATOCRIT 43.8 % (41-53); HEMOGLOBIN 14.8 g/dL (13.5-17.5); LYMPHOCYTES # (AUTO) 1.8 K/uL (1.0-4.8); LYMPHOCYTES % (AUTO) 13.5 % (22.0-44.0); MEAN CORPUSCULAR HEMOGLOBIN 29.2 pg (26.0-34.0); MEAN CORPUSCULAR HGB CONC 33.7 G/dL (31.0-37.0); MEAN CORPUSCULAR VOLUME 86 fL (80-100); MONOCYTES # (AUTO) 0.9 K/uL (0.1-1.0); MONOCYTES % (AUTO) 6.8 % (2.0-9.0); NEUTROPHILS # (AUTO) 10.3 K/uL (1.8-7.7); NEUTROPHILS % (AUTO) 78.5 % (40.0-70.0); PLATELET COUNT (AUTO) 279 K/uL (150-450); RED BLOOD CELL COUNT(AUTO) 5.06 MIL/uL (4.50-5.90); RED CELL DISTRIBUTION WIDTH 13.7 % (11.5-14.5)
[2020-02-05 04:30] LABS: ANION GAP 11 mmol/L (8-16); CALCIUM, TOTAL 9.7 mg/dL (8.8-10.5); CARBON DIOXIDE 28 mmol/L (22-29); CHLORIDE 101 mmol/L (98-107); CREATININE 0.96 mg/dL (0.60-1.30); GLOMERULAR FILTR. RATE CALC > 60 mL/min (>60); GLUCOSE,RANDOM 99 mg/dL (70-110); POTASSIUM 3.1 mmol/L (3.5-5.1); SODIUM SERUM 140 mmol/L (136-145); UREA NITROGEN, BLOOD 9 mg/dL (7-18)
[2020-02-05] MEDS ORDERED: POTASSIUM CHLORIDE 10% 40 MEQ/30 ML LIQUID UDCUP PO ONE (04:45)
[2020-02-05] MEDS ORDERED: TraMADol HCL 50 MG TABLET PO ONE (05:00)
[2020-02-05 05:36] VITALS: BP 135/82
== END 2020-02-05 05:39 | disposition home or self-care (01) ==
LOC: EMS 02:36
DX: G89.29 Other chronic pain (principal); M54.5 Low back pain; F25.9 Schizoaffective disorder, unspecified; E87.6 Hypokalemia; F32.9 Major depressive disorder, single episode, unspecified; F41.9 Anxiety disorder, unspecified; J44.9 Chronic obstructive pulmonary disease, unspecified; K21.9 Gastro-esophageal reflux disease without esophagitis; F17.210 Nicotine dependence, cigarettes, uncomplicated; Z88.8 Allergy status to other drugs, medicaments and biological substances; Z79.899 Other long term (current) drug therapy
CPT/HCPCS: 36415; 80048; 85025; 96374; 96375; 99284; 99406; G0480; J1885; J2800

== ENCOUNTER 2020-03-04 22:36 | Inpatient (IN) | payer MEDICARE, MEDICAID ==
[~2020-03-04] VITALS: Ht 175.3 cm; Wt 90.3 kg
[2020-03-04] MEDS ORDERED: LORA-1000 PO (23:03)
[2020-03-04] MEDS ORDERED: HYDR-4455 PO (23:05)
[2020-03-05 00:06] LABS: BASOPHILS % (AUTO) 0.8 % (0.0-2.0); EOSINOPHILS % (AUTO) 2.1 % (1.0-6.0); HEMATOCRIT 39.9 % (41-53); HEMOGLOBIN 13.4 g/dL (13.5-17.5); LYMPHOCYTES % (AUTO) 26.9 % (22.0-44.0); MEAN CORPUSCULAR HEMOGLOBIN 29.2 pg (26.0-34.0); MEAN CORPUSCULAR HGB CONC 33.6 G/dL (31.0-37.0); MEAN CORPUSCULAR VOLUME 87 fL (80-100); MONOCYTES # (AUTO) 0.9 K/uL (0.1-1.0); MONOCYTES % (AUTO) 7.8 % (2.0-9.0); NEUTROPHILS % (AUTO) 62.4 % (40.0-70.0); PLATELET COUNT (AUTO) 231 K/uL (150-450); RED CELL DISTRIBUTION WIDTH 14.1 % (11.5-14.5)
[2020-03-05] MEDS ORDERED: LORazepam 2 MG TABLET PO ONE ×2 (01:00→04:00)
[2020-03-05] MEDS ORDERED: DiphenhydrAMINE HCL 25 MG CAPSULE PO ONE (01:00)
[2020-03-05] MEDS ORDERED: HALOPERIDOL 5 MG TABLET PO ONE (01:00)
[2020-03-05 01:06] LABS: ANION GAP 12 mmol/L (8-16); CALCIUM, TOTAL 8.6 mg/dL (8.8-10.5); CARBON DIOXIDE 24 mmol/L (22-29); CHLORIDE 100 mmol/L (98-107); GLOMERULAR FILTR. RATE CALC > 60 mL/min (>60); GLUCOSE,RANDOM 106 mg/dL (70-110); POTASSIUM 3.5 mmol/L (3.5-5.1); SODIUM SERUM 136 mmol/L (136-145); UREA NITROGEN, BLOOD 10 mg/dL (7-18)
[2020-03-05 01:13] LABS: ALANINE AMINOTRANSFERASE 14 U/L (12-78); ALBUMIN 3.5 g/dL (3.4-5.0); ALKALINE PHOSPHATASE 68 U/L (46-116); ASPARTATE AMINOTRANSFERASE 14 U/L (15-37); BILIRUBIN,TOTAL 0.2 mg/dL (0.1-1.0); CREATINE KINASE, TOTAL ONLY 62 U/L (39-308); TOTAL PROTEIN, SERUM 6.5 g/dL (6.4-8.2)
[2020-03-05 01:44] LABS: COVID AG,FIA SOURCE NASOPHARYNGEAL
[2020-03-05] MEDS ORDERED: LORazepam 2 MG TABLET PO PRN (01:45)
[2020-03-05] MEDS ORDERED: QUEtiapine FUMARATE 100 MG TABLET PO PRN (01:45)
[2020-03-05] MEDS ORDERED: ZOLPIDEM TARTRATE 10 MG TABLET PO PRN ×2 (01:45→09:30)
[2020-03-05] MEDS: HALOPERIDOL 5 MG TABLET PO ONE ×2 (03:58→04:34)
[2020-03-05] MEDS ORDERED: HALOPERIDOL LACTATE 5 MG/ML VIAL IM ONE (05:15)
[2020-03-05 08:05] LABS: APPEARANCE,URINE CLEAR (CLEAR); BILIRUBIN,URINE NEGATIVE (NEGATIVE); GLUCOSE, URINE (UA) NEGATIVE (NEGATIVE); KETONES,URINE NEGATIVE (NEGATIVE); LEUKOCYTE ESTERASE ,URINE NEGATIVE (NEGATIVE); NITRATE,URINE NEGATIVE (NEGATIVE); OCCULT BLOOD,URINE NEGATIVE (NEGATIVE); PROTEIN,URINE NEGATIVE (NEGATIVE)
[2020-03-05 08:14] LABS: AMPHET/METH SCREEN,URINE NEGATIVE (NEGATIVE); BARBITURATE SCREEN, URINE NEGATIVE (NEGATIVE); BENZODIAZEPINES SCREEN,URINE NEGATIVE (NEGATIVE); CANNABINOID SCREEN,URINE NEGATIVE (NEGATIVE); COCAINE SCREEN,URINE NEGATIVE (NEGATIVE); METHADONE SCREEN, URINE NEGATIVE (NEGATIVE); OPIATE SCREEN,URINE POSITIVE (NEGATIVE)
[2020-03-05 08:15] LABS: PHENCYCLIDINE SCREEN,URINE NEGATIVE (NEGATIVE)
[2020-03-05] MEDS ORDERED: GuaiFENesin/D-METHORPHAN [SUGAR-FREE] 200-20MG/10 ML SYRUP UDCUP PO PRN (09:00)
[2020-03-05] MEDS ORDERED: ONDANSETRON HCL 4 MG TABLET PO PRN (09:00)
[2020-03-05] MEDS ORDERED: PETROLATUM,WHITE 28 GM JELLY TP PRN (09:00)
[2020-03-05] MEDS ORDERED: MAG HYDROX/AL HYDROX/SIMETH ES 30 ML SUSPENSION UDCUP PO PRN (09:00)
[2020-03-05] MEDS ORDERED: MAGNESIUM HYDROXIDE SUSPENSION 30 ML UDCUP PO PRN (09:00)
[2020-03-05] MEDS ORDERED: ALBUTEROL SULFATE HFA 90 MCG/PUFF 8 GM INHALER IH PRN (09:00)
[2020-03-05] MEDS ORDERED: LOPERAMIDE HCL 2 MG CAPSULE PO PRN (09:00)
[2020-03-05] MEDS ORDERED: IBUPROFEN 400 MG TABLET PO PRN (09:00)
[2020-03-05] MEDS ORDERED: NICOTINE 14 MG/24 HOUR PATCH TD PRN (09:00)
[2020-03-05] MEDS ORDERED: DOCUSATE SODIUM 100 MG CAPSULE PO PRN (09:00)
[2020-03-05] MEDS ORDERED: CloNIDine HCL 0.1 MG TABLET PO PRN (09:00)
[2020-03-05 09:09] LABS: BACTERIA,URINE None Seen /HPF (None Seen); RBC,URINE 0-2 /HPF (0-2); WBC,URINE None Seen /HPF (0-5)
[2020-03-05] MEDS ORDERED: OLANZapine 5 MG TABLET PO PRN (09:30)
[2020-03-05 10:53] VITALS: BP 119/79
[2020-03-05] MEDS ORDERED: INFLUENZA VIRUS VACCINE QVS 2020-21 (6MO+)/PF 60 MCG/0.5 ML SYRINGE IM ONE (12:30)
[2020-03-05] MEDS ORDERED: PNEUMOCOCCAL VACCINE POLYVALENT 0.5 ML VIAL [PPSV23] IM ONE (12:30)
[2020-03-05] MEDS: LORazepam 2 MG TABLET PO PRN ×2 (16:15→21:56)
[2020-03-05 16:24] VITALS: BP 119/88
[2020-03-06 00:11] VITALS: BP 111/84
[2020-03-06] MEDS: LORazepam 2 MG TABLET PO PRN ×3 (02:00→16:44)
[2020-03-06] MEDS ORDERED: HydrOXYzine PAMOATE 50 MG CAPSULE PO PRN (11:45)
[2020-03-06] MEDS ORDERED: GuaiFENesin/D-METHORPHAN [SUGAR-FREE] 200-20MG/10 ML SYRUP UDCUP PO PRN (11:45)
[2020-03-06] MEDS ORDERED: PROMETHAZINE HCL 25 MG TABLET PO PRN (11:45)
[2020-03-06] MEDS ORDERED: CYANOCOBALAMIN 1,000 MCG/ML VIAL IM ONE (11:45)
[2020-03-06] MEDS ORDERED: TUBERCULIN, PURIFIED PROTEIN DERIVATIVE 5 TU/0.1 ML SYRINGE ID ONE (11:45)
[2020-03-06] MEDS ORDERED: LORazepam 2 MG/ML VIAL IM ONE (12:15)
[2020-03-06] MEDS ORDERED: DiphenhydrAMINE HCL 50 MG/ML VIAL IM ONE (12:15)
[2020-03-06] MEDS ORDERED: HALOPERIDOL LACTATE 5 MG/ML VIAL IM ONE (12:15)
[2020-03-06] MEDS: PREGABALIN 50 MG CAPSULE PO SCH ×2 (13:00→16:44)
[2020-03-06 16:10] VITALS: BP 150/72
[2020-03-06] MEDS: THIAMINE 100 MG TABLET PO SCH (16:44)
[2020-03-06] MEDS: MELATONIN 5 MG TABLET PO SCH (21:00)
[2020-03-06] MEDS: AMITRIPTYLINE HCL 10 MG TABLET PO SCH (21:00)
[2020-03-07] MEDS: PANTOPRAZOLE SODIUM 40 MG DR TABLET PO SCH (06:51)
[2020-03-07] MEDS: LURASIDONE HCL 40 MG TABLET PO SCH (06:51)
[2020-03-07 08:08] VITALS: BP 142/81
[2020-03-07] MEDS: THIAMINE 100 MG TABLET PO SCH ×2 (09:00→17:00)
[2020-03-07] MEDS: PREGABALIN 50 MG CAPSULE PO SCH ×3 (09:00→17:00)
[2020-03-07] MEDS: OMEGA-3/DHA/EPA/FISH OIL 1,000 MG CAPSULE PO SCH (09:00)
[2020-03-07] MEDS: VENLAFAXINE HCL 37.5 MG ER CAPSULE PO SCH (09:00)
[2020-03-07] MEDS: MULTIVITAMINS WITH MINERALS, THERAPEUTIC TABLET PO SCH (09:00)
[2020-03-07] MEDS: FOLIC ACID 1 MG TABLET PO SCH (09:00)
[2020-03-07] MEDS: LOPERAMIDE HCL 2 MG CAPSULE PO PRN ×4 (13:54→20:21)
[2020-03-07 16:12] VITALS: BP 129/73
[2020-03-07] MEDS: MELATONIN 5 MG TABLET PO SCH (20:21)
[2020-03-07] MEDS: AMITRIPTYLINE HCL 10 MG TABLET PO SCH (20:21)
[2020-03-08 04:32] VITALS: BP 113/76
[2020-03-08] MEDS: PANTOPRAZOLE SODIUM 40 MG DR TABLET PO SCH (06:06)
[2020-03-08] MEDS: LURASIDONE HCL 40 MG TABLET PO SCH (06:07)
[2020-03-08 08:12] VITALS: BP 125/81
[2020-03-08] MEDS: MULTIVITAMINS WITH MINERALS, THERAPEUTIC TABLET PO SCH (08:19)
[2020-03-08] MEDS: OMEGA-3/DHA/EPA/FISH OIL 1,000 MG CAPSULE PO SCH (08:19)
[2020-03-08] MEDS: PREGABALIN 50 MG CAPSULE PO SCH ×3 (08:19→16:47)
[2020-03-08] MEDS: VENLAFAXINE HCL 37.5 MG ER CAPSULE PO SCH (08:19)
[2020-03-08] MEDS: THIAMINE 100 MG TABLET PO SCH ×2 (08:20→16:48)
[2020-03-08] MEDS: FOLIC ACID 1 MG TABLET PO SCH (09:00)
[2020-03-08 16:14] VITALS: BP 131/94
[2020-03-08] MEDS: LORazepam 2 MG TABLET PO PRN (19:42)
[2020-03-08] MEDS: AMITRIPTYLINE HCL 10 MG TABLET PO SCH (21:00)
[2020-03-08] MEDS: MELATONIN 5 MG TABLET PO SCH (21:00)
[2020-03-08] MEDS: ACETAMINOPHEN 325 MG TABLET PO PRN (22:40)
[2020-03-09 00:16] VITALS: BP 133/94
[2020-03-09] MEDS: LORazepam 2 MG TABLET PO PRN ×4 (00:36→19:46)
[2020-03-09] MEDS: LURASIDONE HCL 40 MG TABLET PO SCH (06:22)
[2020-03-09] MEDS: PANTOPRAZOLE SODIUM 40 MG DR TABLET PO SCH (06:22)
[2020-03-09] MEDS: PREGABALIN 50 MG CAPSULE PO SCH ×3 (08:47→17:00)
[2020-03-09] MEDS: FOLIC ACID 1 MG TABLET PO SCH (08:47)
[2020-03-09] MEDS: THIAMINE 100 MG TABLET PO SCH ×2 (08:47→17:00)
[2020-03-09] MEDS: VENLAFAXINE HCL 37.5 MG ER CAPSULE PO SCH (08:47)
[2020-03-09] MEDS: MULTIVITAMINS WITH MINERALS, THERAPEUTIC TABLET PO SCH (08:47)
[2020-03-09] MEDS: OMEGA-3/DHA/EPA/FISH OIL 1,000 MG CAPSULE PO SCH (08:47)
[2020-03-09 09:12] VITALS: BP 133/87
[2020-03-09 16:25] VITALS: BP 128/82
[2020-03-09] MEDS: ACETAMINOPHEN 325 MG TABLET PO PRN (16:38)
[2020-03-09 17:05] VITALS: BP 125/76
[2020-03-09] MEDS ORDERED: LOPERAMIDE HCL 2 MG CAPSULE PO PRN (18:15)
[2020-03-09] MEDS: MELATONIN 5 MG TABLET PO SCH (20:27)
[2020-03-09] MEDS: AMITRIPTYLINE HCL 10 MG TABLET PO SCH (20:27)
[2020-03-10 00:48] VITALS: BP 127/68
[2020-03-10] MEDS: LORazepam 2 MG TABLET PO PRN ×2 (04:25→08:55)
[2020-03-10] MEDS: PANTOPRAZOLE SODIUM 40 MG DR TABLET PO SCH (06:05)
[2020-03-10] MEDS: LURASIDONE HCL 40 MG TABLET PO SCH (06:05)
[2020-03-10 08:05] VITALS: BP 128/83
[2020-03-10] MEDS ORDERED: VENL37.570 PO (08:31)
[2020-03-10] MEDS ORDERED: PREG50 PO (08:31)
[2020-03-10] MEDS ORDERED: LURA40TA2 PO (08:31)
[2020-03-10] MEDS ORDERED: NALT50TA PO (08:31)
[2020-03-10] MEDS ORDERED: MELA5TAB3 PO (08:31)
[2020-03-10] MEDS ORDERED: OMEG-135 PO (08:31)
[2020-03-10] MEDS ORDERED: AMIT10TA6 PO (08:31)
[2020-03-10] MEDS: FOLIC ACID 1 MG TABLET PO SCH (09:00)
[2020-03-10] MEDS: VENLAFAXINE HCL 37.5 MG ER CAPSULE PO SCH (09:00)
[2020-03-10] MEDS: OMEGA-3/DHA/EPA/FISH OIL 1,000 MG CAPSULE PO SCH (09:00)
[2020-03-10] MEDS: MULTIVITAMINS WITH MINERALS, THERAPEUTIC TABLET PO SCH (09:00)
[2020-03-10] MEDS: PREGABALIN 50 MG CAPSULE PO SCH (09:00)
[2020-03-10] MEDS: THIAMINE 100 MG TABLET PO SCH (09:00)
[2020-03-10] MEDS ORDERED: PANT-31 PO ×3 (09:22→09:37)
[2020-03-10] MEDS ORDERED: LORA-999 PO (09:39)
== END 2020-03-10 09:45 | disposition home or self-care (01) | DRG 885 ==
LOC: EMS 22:39 → B2X 03-05 01:43 → UNDOADMIN 03-05 01:43 → 3EC 03-05 01:43 → B3A 03-05 10:20
PROVIDERS: ATTEND Psychiatry & Neurology Psychiatry
DX: F25.9 Schizoaffective disorder, unspecified (principal); F33.2 Major depressive disorder, recurrent severe without psychotic features; R45.851 Suicidal ideations; G89.29 Other chronic pain; I10 Essential (primary) hypertension; J44.9 Chronic obstructive pulmonary disease, unspecified; F17.210 Nicotine dependence, cigarettes, uncomplicated; Z20.828 Contact with and (suspected) exposure to other viral communicable diseases; E87.6 Hypokalemia; F41.9 Anxiety disorder, unspecified; K21.9 Gastro-esophageal reflux disease without esophagitis; R41.843 Psychomotor deficit; D64.9 Anemia, unspecified; F19.21 Other psychoactive substance dependence, in remission; M54.9 Dorsalgia, unspecified; D72.828 Other elevated white blood cell count; Z55.9 Problems related to education and literacy, unspecified; Z59.0 Homelessness; Z65.3 Problems related to other legal circumstances; Z78.1 Physical restraint status; Z91.14 Patient's other noncompliance with medication regimen; Z88.8 Allergy status to other drugs, medicaments and biological substances; Z79.899 Other long term (current) drug therapy; Z28.21 Immunization not carried out because of patient refusal
CPT/HCPCS: 87426; G0480; J1200; J1630; J2060

== ENCOUNTER 2021-01-27 16:16 | Inpatient (IN) | payer MEDICARE, MEDICAID ==
[~2021-01-27] VITALS: Ht 175.3 cm; Wt 91.0 kg
[~2021-01-27 16:16] MED LIST changes: -HYD50 PO; -LURA20TA PO; +LURA40TA2 PO; -MELA5TAB3 PO; -NALT50TA PO; -OMEG-135 PO
[2021-01-27] MEDS ORDERED: ZOLPIDEM TARTRATE 10 MG TABLET PO PRN (19:30)
[2021-01-27] MEDS ORDERED: HALOPERIDOL 5 MG TABLET PO PRN (19:30)
[2021-01-27 20:39] LABS: COVID AG,FIA SOURCE NASOPHARYNGEAL
[2021-01-28 00:36] VITALS: BP 131/75
[2021-01-28] MEDS: LORazepam 2 MG TABLET PO PRN ×4 (01:09→21:07)
[2021-01-28] MEDS ORDERED: INFLUENZA VIRUS VACCINE QVS 2021-22 (6MO+)/PF 60 MCG/0.5 ML SYRINGE IM. ONE (02:15)
[2021-01-28 08:25] VITALS: BP 127/87
[2021-01-28] MEDS: PREGABALIN 50 MG CAPSULE PO SCH ×4 (08:43→17:00)
[2021-01-28] MEDS ORDERED: MAGNESIUM HYDROXIDE SUSPENSION 30 ML UDCUP PO PRN (09:45)
[2021-01-28] MEDS ORDERED: LOPERAMIDE HCL 2 MG CAPSULE PO PRN (09:45)
[2021-01-28] MEDS ORDERED: ONDANSETRON HCL 4 MG TABLET PO PRN (09:45)
[2021-01-28] MEDS ORDERED: NICOTINE 14 MG/24 HOUR PATCH TD PRN (09:45)
[2021-01-28] MEDS ORDERED: GuaiFENesin/D-METHORPHAN [SUGAR-FREE] 200-20MG/10 ML SYRUP UDCUP PO PRN (09:45)
[2021-01-28] MEDS ORDERED: MAG HYDROX/AL HYDROX/SIMETH ES 30 ML SUSPENSION UDCUP PO PRN (09:45)
[2021-01-28] MEDS ORDERED: DOCUSATE SODIUM 100 MG CAPSULE PO PRN (09:45)
[2021-01-28] MEDS ORDERED: IBUPROFEN 400 MG TABLET PO PRN (09:45)
[2021-01-28] MEDS ORDERED: PETROLATUM,WHITE 28 GM JELLY TP PRN (09:45)
[2021-01-28] MEDS ORDERED: CloNIDine HCL 0.1 MG TABLET PO PRN (09:45)
[2021-01-28] MEDS ORDERED: ACETAMINOPHEN 325 MG TABLET PO PRN (09:45)
[2021-01-28] MEDS ORDERED: ALBUTEROL SULFATE HFA 90 MCG/PUFF 8 GM INHALER IH PRN (09:45)
[2021-01-28] MEDS: LURASIDONE HCL 40 MG TABLET PO SCH ×2 (10:15→11:06)
[2021-01-28] MEDS: VENLAFAXINE HCL 37.5 MG ER CAPSULE PO SCH (13:15)
[2021-01-28 16:11] VITALS: BP 131/78
[2021-01-29 05:51] VITALS: BP 128/84
[2021-01-29] MEDS: LURASIDONE HCL 40 MG TABLET PO SCH (06:55)
[2021-01-29 08:14] VITALS: BP 133/87
[2021-01-29] MEDS: VENLAFAXINE HCL 37.5 MG ER CAPSULE PO SCH (09:00)
[2021-01-29] MEDS: PREGABALIN 50 MG CAPSULE PO SCH ×3 (09:00→17:00)
[2021-01-29] MEDS: LORazepam 2 MG TABLET PO PRN ×4 (09:46→21:58)
[2021-01-29 16:09] VITALS: BP 113/78
[2021-01-30 05:54] VITALS: BP 128/78
[2021-01-30] MEDS: LURASIDONE HCL 40 MG TABLET PO SCH (07:00)
[2021-01-30 08:15] VITALS: BP 126/74
[2021-01-30] MEDS: PREGABALIN 50 MG CAPSULE PO SCH (09:00)
[2021-01-30] MEDS: VENLAFAXINE HCL 37.5 MG ER CAPSULE PO SCH (09:00)
[2021-01-30] MEDS: LORazepam 2 MG TABLET PO PRN (09:18)
== END 2021-01-30 12:20 | disposition left against medical advice (07) | DRG 885 ==
LOC: EMS 16:25 → B2X 20:12
PROVIDERS: ADMIT Psychiatry & Neurology Child & Adolescent Psychiatry; ATTEND Psychiatry & Neurology Child & Adolescent Psychiatry
DX: F25.1 Schizoaffective disorder, depressive type (principal); R45.851 Suicidal ideations; F41.9 Anxiety disorder, unspecified; G89.29 Other chronic pain; Z20.822 Contact with and (suspected) exposure to COVID-19; M79.7 Fibromyalgia; K21.9 Gastro-esophageal reflux disease without esophagitis; Z53.29 Procedure and treatment not carried out because of patient's decision for other reasons; J44.9 Chronic obstructive pulmonary disease, unspecified; I10 Essential (primary) hypertension; F17.200 Nicotine dependence, unspecified, uncomplicated; Z91.51 Personal history of suicidal behavior; Z88.8 Allergy status to other drugs, medicaments and biological substances; Z59.00 Homelessness unspecified
CPT/HCPCS: 99285